=== PATIENT | male | born 1995 | race Caucasian/White ===

== ENCOUNTER 2024-02-07 18:04 | Emergency (ER) | payer OTHER ==
[~2024-02-07] VITALS: Ht 172.7 cm; Wt 80.0 kg
[2024-02-07 18:07] VITALS: BP 156/98; RESP 18; TEMP 98.1; O2SAT 100
[2024-02-07 18:09] VITALS: PULSE 101
[2024-02-07 18:35] LABS: BASOPHILS % 0.7 % (0.0-2.0); EOSINOPHILS % 4.7 % (0.0-5.0); HEMATOCRIT. 42.7 % (42.0-52.0); HEMOGLOBIN. 14.8 g/dL (14.0-18.0); LYMPHOCYTES % 45.5 % (20.0-50.0); MEAN CORPUSCULAR HEMOGLOBIN 31.5 pg (28.0-32.0); MEAN CORPUSCULAR HGB CONC 34.7 g/dL (31.0-37.0); MEAN CORPUSCULAR VOLUME 90.9 fL (80.0-94.0); MEAN PLATELET VOLUME 7.5 fl (7.4-10.4); MONOCYTES % 6.6 % (2.0-8.0); NEUTROPHILS % 42.5 % (40.0-76.0); PLATELET 292 x1000/uL (130-400); RED CELL DISTRIBUTION WIDTH 13.1 % (11.6-14.6); WHITE BLOOD COUNT 6.3 x1000/uL (4.5-11.0)
[2024-02-07 18:42] LABS: CHLORIDE 105 mEq/L (98-107); POTASSIUM 3.6 mEq/L (3.5-5.1); SODIUM 137 mEq/L (136-145)
[2024-02-07 18:43] LABS: CALCIUM 9.4 mg/dL (8.7-10.4); CARBON DIOXIDE 26 mEq/L (21-32)
[2024-02-07 18:48] LABS: CREATININE 1.1 mg/dL (0.6-1.3); GLUCOSE 107 mg/dL (70-105); UREA NITROGEN BLOOD 9 mg/dL (9-23)
[2024-02-07 18:50] LABS: TROPONIN I HIGH SENSITIVITY < 4 ng/L (3.0-53)
[2024-02-07] MEDS ORDERED: IBUP-2029 MT (20:07)
[2024-02-07] MEDS ORDERED: METH-653 MT (20:07)
== END 2024-02-07 20:19 | disposition home or self-care (01) ==
LOC: ER 18:04
DX: R07.89 Other chest pain (principal); R06.02 Shortness of breath; F41.9 Anxiety disorder, unspecified; Z90.49 Acquired absence of other specified parts of digestive tract
CPT/HCPCS: 36415; 71045; 80048; 84484; 85025; 93005; 99285

== ENCOUNTER 2025-04-15 17:14 | Emergency (ER) | payer OTHER ==
[~2025-04-15] VITALS: Ht 172.7 cm; Wt 82.0 kg
[~2025-04-15 17:14] MED LIST: IBUP-1455 MT; METH-653 MT
[2025-04-15 17:26] VITALS: O2SAT 100
[2025-04-15] MEDS ORDERED: HYDR-459 PO (18:54)
[2025-04-15 19:17] VITALS: BP 111/77; PULSE 61; RESP 18; TEMP 36.8; O2SAT 100
== END 2025-04-15 19:17 | disposition home or self-care (01) ==
LOC: ER 17:25
DX: F41.9 Anxiety disorder, unspecified (principal); F10.239 Alcohol dependence with withdrawal, unspecified; Z90.49 Acquired absence of other specified parts of digestive tract; Y90.9 Presence of alcohol in blood, level not specified
CPT/HCPCS: 99283